=== PATIENT | female | born 1990 | race African-American/Black ===

== ENCOUNTER 2019-07-14 09:45 | Emergency (ER) | payer OTHER ==
--- NOTE | 2019-07-14 10:07 | ED Physician Documentation ---
PD HPI FEMALE - Stated complaint Stated Complaint: FEMALE /DIARRHEA - Chief complaint Chief Complaint: Abd Pain - History obtained from History obtained from: Patient - History of Present Illness Timing - onset: How many weeks ago (1) Timing - duration: Weeks (1) Timing - details: Gradual onset, Still present Associated symptoms: Dysuria, Urinary frequency. No: Fever, Vaginal discharge, Genital sore/lesion Contributing factors: Sexually active. No: Exposed to STD Similar symptoms before: Has not had sx before Recently seen: Not recently seen Review of Systems Constitutional: denies: Fever, Chills, Myalgias Nose: denies: Rhinorrhea / runny nose, Congestion Throat: denies: Sore throat Respiratory: denies: Cough GI: reports: Diarrhea (today, several times started overnight.). denies: Nausea, Vomiting : reports: Dysuria, Frequency. 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 : None Musculoskeletal: None - Past Surgical History Past Surgical History: No - Present Medications Home Medications: Ambulatory Orders Medication Instructions Recorded Confirmed Fluconazole [Diflucan] 150 mg PO ONCE #2 tablet 07/14/19 Metronidazole [Flagyl] 500 mg PO BID #14 tablet 07/14/19 - Allergies Allergies/Adverse Reactions: Allergies Allergy/AdvReac Type Severity Reaction Status Date / Time No Known Drug Allergies Allergy Verified 07/14/19 09:49 - Social History Does the pt smoke?: No Smoking Status: Former smoker Does the pt drink ETOH?: Yes Does the pt have substance abuse?: No - Immunizations Immunizations are current?: Yes PD ED PE NORMAL - Vitals Vital signs reviewed: Yes - General General: Alert and oriented X 3, No acute distress, Well developed/nourished - Cardiac Cardiac: RRR, No murmur - Respiratory Respiratory: Clear bilaterally - Abdomen Abdomen: Normal bowel sounds, Soft, Non tender, Non distended, No organomegaly - Female Female : 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 Vaginal vault has mild whitish discharge near introitus. Otherwise the vault has mucous/clear with some white discharge with some malodor. No endocervical discharge per se. ) - Rectal Rectal: Deferred - Back Back: No CVA TTP - Derm Derm: Normal color, No rash - Extremities Extremities: No edema, No calf tenderness / cord - Neuro Neuro: Alert and oriented X 3, No motor deficit, Normal speech Results - Vitals Vitals: Vital Signs - 24 hr 07/14/19 07/14/19 09:50 12:57 Temperature 36.6 C Heart Rate 74 67 Respiratory 18 16 Rate Blood Pressure 115/76 125/89 H O2 Saturation 100 100 Oxygen O2 Source Room air - Labs Labs: Laboratory Tests 07/14/19 07/14/19 07/14/19 10:00 10:00 12:19 Urine Color YELLOW Urine Clarity HAZY Urine pH 6.5 Ur Specific [place] <=1.005 <=1.005 Urine Protein NEGATIVE Urine Glucose (UA) NEGATIVE Urine Ketones NEGATIVE Urine Occult Blood SMALL H Urine Nitrite NEGATIVE Urine Bilirubin NEGATIVE Urine Urobilinogen 0.2 (NORMAL) Ur Leukocyte Esterase SMALL H Urine RBC 0-5 Urine WBC 6-10 H Ur Squamous Epith Cells MANY Squamous H Urine Bacteria Few Ur Microscopic Review INDICATED Urine Culture Comments NOT INDICATED Urine HCG, Qual NEGATIVE C. glabrata (PCR) NEGATIVE C. krusei (PCR) NEGATIVE Agatha species DNA NEGATIVE T. vaginalis (PCR) NEGATIVE Bact Vaginosis (PCR) NEGATIVE PD MEDICAL DECISION MAKING - ED course Complexity details: considered differential (UA not convincing for UTI. Some yeast mentioned. Did pelvic and exam is more c/w vaginitis. ), d/w patient Departure - Departure Disposition: 01 Home, Self Care Clinical Impression: Dysuria Vaginitis Qualifiers: Chronicity: acute Qualified Code(s): N76.0 - Acute vaginitis Condition: Stable Record reviewed to determine appropriate education?: Yes Instructions: ED Vaginal Infec Fungal Agatha Follow-Up: [facility] [Provider Group] Prescriptions: Fluconazole [Diflucan] 150 mg PO ONCE #2 tablet Metronidazole [Flagyl] 500 mg PO BID #14 tablet Comments: Your exam has an appearance of a yeast vaginitis. They may be an element of a bacterial vaginitis as well. We are doing some vaginal "culture" tests that will result later today or tomorrow to look for other type infections. We will treat with the prescribed medications antifungal and antibiotic. We will call you if other types of infections are present. You were given an antifungal tablet here in the ER. I prescribed 2 more for you to take 3 days from now and another 3 days after that. Discharge Date/Time: 07/14/19 12:58
[2019-07-14 10:09] LABS: BILIRUBIN,URINE NEGATIVE (NEGATIVE); GLUCOSE, URINE (UA) NEGATIVE (NEGATIVE); KETONES,URINE (UA) NEGATIVE (NEGATIVE); LEUKOCYTE ESTERASE, URINE SMALL (NEGATIVE); NITRITE,URINE NEGATIVE (NEGATIVE); OCCULT BLOOD,URINE SMALL (NEGATIVE); PH,URINE 6.5 PH (5.0-7.5); PROTEIN,URINE NEGATIVE (NEGATIVE); UROBILINOGEN,URINE 0.2 (NORMAL) E.U./dL (NORMAL)
[2019-07-14 10:10] LABS: CLARITY,URINE HAZY (CLEAR)
[2019-07-14 10:17] LABS: BACTERIA,URINE Few /HPF (None Seen); RBC,URINE 0-5 /HPF (0-5); SQUAMOUS EPITHELIAL CELL,UR MANY Squamous (<= Few)
[2019-07-14 10:53] LABS: HCG UR QUAL NEGATIVE
[2019-07-14] MEDS ORDERED: FLUCONAZOLE 100 MG TABLET PO STA (12:24)
[2019-07-14] MEDS ORDERED: DIPHENOX/ATROPINE 2.5/0.025 MG TABLET PO STA (12:52)
[2019-07-14 12:58] VITALS: BP 125/89
[2019-07-14 14:17] LABS: CANDIDA GROUP DNA NEGATIVE (NEGATIVE); CANDIDA KRUSEI DNA NEGATIVE (NEGATIVE); TRICHOMONAS VAGINALIS DNA NEGATIVE (NEGATIVE)
[2019-07-16 18:24] LABS: TRICHOMONAS VAGINALIS DNA NEGATIVE (NEGATIVE)
== END 2019-07-14 12:58 | disposition home or self-care (01) ==
LOC: ED 09:45
DX: N76.0 Acute vaginitis (principal); R30.0 Dysuria; Z87.891 Personal history of nicotine dependence
CPT/HCPCS: 81001; 81025; 87481; 87491; 87591; 87661; 87801; 99283; 99284; A9270; 81003; 87086

== ENCOUNTER 2020-04-20 10:19 | Emergency (ER) | payer OTHER ==
[2020-04-20 10:54] LABS: BILIRUBIN,URINE NEGATIVE (NEGATIVE); GLUCOSE, URINE (UA) NEGATIVE (NEGATIVE); KETONES,URINE (UA) NEGATIVE (NEGATIVE); LEUKOCYTE ESTERASE, URINE SMALL (NEGATIVE); NITRITE,URINE NEGATIVE (NEGATIVE); OCCULT BLOOD,URINE NEGATIVE (NEGATIVE); PROTEIN,URINE NEGATIVE (NEGATIVE); UROBILINOGEN,URINE 0.2 (NORMAL) E.U./dL (NORMAL)
[2020-04-20 10:58] LABS: CLARITY,URINE HAZY (CLEAR); HCG UR QUAL POSITIVE
[2020-04-20 11:17] LABS: BASOPHILS # (AUTO) 0.1 10^3/uL (0.0-0.1); BASOPHILS % (AUTO) 0.9 %; EOSINOPHILS % (AUTO) 0.7 %; HGB - HEMOGLOBIN 12.9 g/dL (12.0-16.0); LYMPHOCYTES % (AUTO) 36.3 %; MEAN CORPUSCULAR HEMOGLOBIN 27.5 pg (27.0-31.0); MEAN CORPUSCULAR HGB CONC 33.4 g/dL (32.0-36.0); MEAN CORPUSCULAR VOLUME 82.3 fL (81.0-99.0); MEAN PLATELET VOLUME 10.1 fL (7.9-10.8); MONOCYTES # (AUTO) 0.5 10^3/uL (0.0-1.0); MONOCYTES % (AUTO) 9.8 %; NEUTROPHILS # (AUTO) 2.8 10^3/uL (1.5-6.6); NEUTROPHILS % (AUTO) 52.1 %; PLT - PLATELET COUNT 340 10^3/uL (130-450); RED BLOOD COUNT 4.69 10^6/uL (4.20-5.40); RED CELL DISTRIBUTION WIDTH 13.5 % (12.0-15.0); WHITE BLOOD COUNT 5.4 x10^3/uL (4.8-10.8)
[2020-04-20 11:25] LABS: BACTERIA,URINE Moderate /HPF (None Seen); RBC,URINE 0-5 /HPF (0-5); SQUAMOUS EPITHELIAL CELL,UR MANY Squamous (<= Few)
[2020-04-20 11:28] LABS: BILIRUBIN,TOTAL 0.6 mg/dL (0.2-1.0); CALCIUM 8.9 mg/dL (8.5-10.3); CREATININE 0.9 mg/dL (0.4-1.0); TOTAL PROTEIN 7.9 g/dL (6.7-8.2)
--- NOTE | 2020-04-20 12:43 | ED Physician Documentation ---
PD HPI NVD - Stated complaint Stated Complaint: N/V, DIFFICULTY BREATHING - Chief complaint Chief Complaint: Abd Pain - History obtained from History obtained from: Patient - History of Present Illness Timing - onset: How many weeks ago (1) Timing - duration: Weeks (1) Timing - details: Gradual onset, Waxing and waning Associated symptoms: Abdominal pain (crampy lower), Loss of appetite. No: Fever Contributing factors: No: Sick contact, Bad food, Travel, Diabetes Improved by: No: Eating Worsened by: Eating Similar symptoms before: Has not had sx before Recently seen: Not recently seen Review of Systems Constitutional: denies: Fever, Chills, Myalgias Nose: denies: Rhinorrhea / runny nose, Congestion Throat: denies: Sore throat Respiratory: denies: Cough GI: reports: Nausea, Vomiting (few times). denies: Constipation, Diarrhea : reports: Missed period (she is 1 week late). 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 Musculoskeletal: None - Past Surgical History Past Surgical History: No - Present Medications Home Medications: Ambulatory Orders Medication Instructions Recorded Confirmed Bcp 02/27/20 Cephalexin [Keflex] 500 mg PO BID 5 Days #10 capsule 02/27/20 Ondansetron Odt [Zofran] 4 mg TL Q6H PRN #10 tablet 04/20/20 Pyridoxine HCl (Vitamin B6) 25 mg PO BID #30 tablet 04/20/20 [Vitamin B-6] dexAMETHasone [Decadron] 4 mg PO DAILY #5 tablet 04/20/20 - Allergies Allergies/Adverse Reactions: Allergies Allergy/AdvReac Type Severity Reaction Status Date / Time No Known Drug Allergies Allergy Verified 04/20/20 10:24 - Social History Does the pt smoke?: No Smoking Status: Former smoker Does the pt drink ETOH?: Yes Does the pt have substance abuse?: No - Immunizations Immunizations are current?: Yes - POLST Patient has POLST: No PD ED PE NORMAL - Vitals Vital signs reviewed: Yes - General General: Alert and oriented X 3, No acute distress, Well developed/nourished - HEENT HEENT: Pharynx benign - Neck Neck: Supple, no meningeal sign, No adenopathy - Cardiac Cardiac: RRR, No murmur - Respiratory Respiratory: Clear bilaterally - Abdomen Abdomen: Normal bowel sounds, Soft, Non distended, No organomegaly, Other (mild tender RLQ without guarding nor percusssion tender. No CVA tenderness. ) - Female Female : Deferred - Back Back: No CVA TTP - Derm Derm: Normal color, Warm and dry - Neuro Neuro: Alert and oriented X 3, No motor deficit, Normal speech Results - Vitals Vitals: Vital Signs - 24 hr 04/20/20 04/20/20 04/20/20 10:24 13:29 14:28 Temperature 36.5 C 37.3 C 37 C Heart Rate 91 83 85 Respiratory 18 14 16 Rate Blood Pressure 118/77 112/71 104/71 O2 Saturation 100 100 100 Oxygen O2 Source Room air - Labs Labs: Laboratory Tests 04/20/20 04/20/20 04/20/20 10:30 10:58 10:58 WBC 5.4 RBC 4.69 Hgb 12.9 Hct 38.6 MCV 82.3 MCH 27.5 MCHC 33.4 RDW 13.5 Plt Count 340 MPV 10.1 Neut # (Auto) 2.8 Lymph # (Auto) 2.0 [place] # (Auto) 0.5 Eos # (Auto) 0.0 Baso # (Auto) 0.1 Absolute Nucleated RBC 0.00 Nucleated RBC % 0.0 Sodium 134 L Potassium 3.9 Chloride 101 Carbon Dioxide 26 Anion Gap 7.0 BUN 15 Creatinine 0.9 Estimated GFR (MDRD) 90 Glucose 88 Calcium 8.9 Total Bilirubin 0.6 AST 24 ALT 21 Alkaline Phosphatase 42 Total Protein 7.9 Albumin 4.0 Globulin 3.9 Albumin/Globulin Ratio 1.0 Lipase 32 HCG, Quant Urine Color YELLOW Urine Clarity HAZY Urine pH 7.0 Ur Specific [place] 1.020 Urine Protein NEGATIVE Urine Glucose (UA) NEGATIVE Urine Ketones NEGATIVE Urine Occult Blood NEGATIVE Urine Nitrite NEGATIVE Urine Bilirubin NEGATIVE Urine Urobilinogen 0.2 (NORMAL) Ur Leukocyte Esterase SMALL H Urine RBC 0-5 Urine WBC 11-25 H Ur Squamous Epith Cells MANY Squamous H Urine Bacteria Moderate H Ur Microscopic Review INDICATED Urine Culture Comments NOT INDICATED Urine HCG, Qual POSITIVE 04/20/20 10:58 WBC RBC Hgb Hct MCV MCH MCHC RDW Plt Count MPV Neut # (Auto) Lymph # (Auto) [place] # (Auto) Eos # (Auto) Baso # (Auto) Absolute Nucleated RBC Nucleated RBC % Sodium Potassium Chloride Carbon Dioxide Anion Gap BUN Creatinine Estimated GFR (MDRD) Glucose Calcium Total Bilirubin AST ALT Alkaline Phosphatase Total Protein Albumin Globulin Albumin/Globulin Ratio Lipase HCG, Quant 452.20 Urine Color Urine Clarity Urine pH Ur Specific [place] Urine Protein Urine Glucose (UA) Urine Ketones Urine Occult Blood Urine Nitrite Urine Bilirubin Urine Urobilinogen Ur Leukocyte Esterase Urine RBC Urine WBC Ur Squamous Epith Cells Urine Bacteria Ur Microscopic Review Urine Culture Comments Urine HCG, Qual PD MEDICAL DECISION MAKING - ED course Complexity details: re-evaluated patient (Pt had waited for U/S and then needs to be leaving. Encouraged to see PCP for further testing and discussed concern/consequences of ectopic. ), considered differential (presume N/V related to early . Will get U/S since some mild RLQ tender to ensure not ectopic.), d/w patient Departure - Departure Disposition: 01 Home, Self Care Clinical Impression: Early stage of Nausea & vomiting Qualifiers: Vomiting type: unspecified Vomiting Intractability: non-intractable Qualified Code(s): R11.2 - Nausea with vomiting, unspecified Condition: Stable Record reviewed to determine appropriate education?: Yes Instructions: ED Preg Morning Sickness Follow-Up: [facility] [Provider Group] Prescriptions: dexAMETHasone [Decadron] 4 mg PO DAILY #5 tablet Pyridoxine HCl (Vitamin B6) [Vitamin B-6] 25 mg PO BID #30 tablet Ondansetron Odt [Zofran] 4 mg TL Q6H PRN #10 tablet PRN Reason: Nausea / Vomiting Comments: Stay well-hydrated and use Tylenol if needed for pains every 4-6 hours. For your nausea, presumed from early , we can use a combination of vitamin B6 twice daily and Decadron steroid daily for the next 5 days. To that add ondansetron if needed for nausea. Follow-up with your primary care for further evaluation. Return if you have increased pain or other problems. Concern would be for any malposition of the fetus such as a tubal if you are experiencing increased pain. Otherwise following up with your primary care for initial evaluation. You can stop your control pill. Forms: Activity restrictions Discharge Date/Time: 04/20/20 14:29
[2020-04-20] MEDS ORDERED: FAMOTIDINE 20 MG TABLET PO STA (13:06)
[2020-04-20] MEDS ORDERED: ONDANSETRON ODT 4 MG TABLET TL STA (13:06)
[2020-04-20 14:29] VITALS: BP 104/71
== END 2020-04-20 14:29 | disposition home or self-care (01) ==
LOC: ED 10:19
DX: O21.9 Vomiting of pregnancy, unspecified (principal); Z3A.00 Weeks of gestation of pregnancy not specified; Z87.891 Personal history of nicotine dependence
CPT/HCPCS: 36415; 80053; 81001; 81025; 83690; 84702; 85025; 99284; A9270; Q0162; 81003; 87086

== ENCOUNTER 2020-05-05 16:41 | Emergency (ER) | payer OTHER ==
--- NOTE | 2020-05-05 17:26 | ED Physician Documentation ---
PD HPI FEMALE - Stated complaint Stated Complaint: ABD PX - Chief complaint Chief Complaint: Abd Pain - History obtained from History obtained from: Patient - History of Present Illness Timing - onset: How many weeks ago (3) Timing - duration: Weeks (3) Timing - details: Gradual onset, Still present, Constant Associated symptoms: Abdominal pain, Back pain. 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 She indicates that for the past 3 weeks she has had pain in her right side and the right flank and the modifying factors for this pain is if she is laying on her right side the pain is somewhat better if she lays on the left side the pain on the right side is worse it is sharp and stabbing in nature. 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 : None Musculoskeletal: None - Past Surgical History Past Surgical History: No - Present Medications Home Medications: Ambulatory Orders Medication Instructions Recorded Confirmed Bcp 02/27/20 Cephalexin [Keflex] 500 mg PO BID 5 Days #10 capsule 02/27/20 Ondansetron Odt [Zofran] 4 mg TL Q6H PRN #10 tablet 04/20/20 Pyridoxine HCl (Vitamin B6) 25 mg PO BID #30 tablet 04/20/20 [Vitamin B-6] dexAMETHasone [Decadron] 4 mg PO DAILY #5 tablet 04/20/20 - Allergies Allergies/Adverse Reactions: Allergies Allergy/AdvReac Type Severity Reaction Status Date / Time No Known Drug Allergies Allergy Verified 05/05/20 16:49 - Social History Does the pt smoke?: No Smoking Status: Former smoker Does the pt drink ETOH?: Yes Does the pt have substance abuse?: No - Immunizations Immunizations are current?: Yes - POLST Patient has POLST: No Results - Vitals Vitals: Vital Signs - 24 hr 10/07/20 10/07/20 16:44 17:14 Temperature 36.6 C 36.9 C Heart Rate 85 84 Respiratory 16 16 Rate Blood Pressure 112/75 121/83 H O2 Saturation 100 100 Oxygen O2 Source Room air - Labs Labs: Laboratory Tests 05/05/20 05/05/20 05/05/20 17:10 17:30 17:30 WBC 4.3 L RBC 4.28 Hgb 12.0 Hct 36.1 L MCV 84.3 MCH 28.0 MCHC 33.2 RDW 13.4 Plt Count 297 MPV 9.7 Neut # (Auto) 2.3 Lymph # (Auto) 1.5 [place] # (Auto) 0.5 Eos # (Auto) 0.1 Baso # (Auto) 0.1 Absolute Nucleated RBC 0.00 Nucleated RBC % 0.0 Sodium 134 L Potassium 3.7 Chloride 101 Carbon Dioxide 25 Anion Gap 8.0 BUN 8 Creatinine 0.7 Estimated GFR (MDRD) 120 Glucose 74 Calcium 8.8 Total Bilirubin 0.4 AST 22 ALT 15 Alkaline Phosphatase 35 L Total Protein 7.1 Albumin 3.6 Globulin 3.5 Albumin/Globulin Ratio 1.0 Lipase 27 HCG, Quant Urine Color YELLOW Urine Clarity CLEAR Urine pH 7.5 Ur Specific [place] 1.020 Urine Protein NEGATIVE Urine Glucose (UA) NEGATIVE Urine Ketones NEGATIVE Urine Occult Blood NEGATIVE Urine Nitrite NEGATIVE Urine Bilirubin NEGATIVE Urine Urobilinogen 0.2 (NORMAL) Ur Leukocyte Esterase NEGATIVE Ur Microscopic Review NOT INDICATED Urine Culture Comments NOT INDICATED 05/05/20 17:30 WBC RBC Hgb Hct MCV MCH MCHC RDW Plt Count MPV Neut # (Auto) Lymph # (Auto) [place] # (Auto) Eos # (Auto) Baso # (Auto) Absolute Nucleated RBC Nucleated RBC % Sodium Potassium Chloride Carbon Dioxide Anion Gap BUN Creatinine Estimated GFR (MDRD) Glucose Calcium Total Bilirubin AST ALT Alkaline Phosphatase Total Protein Albumin Globulin Albumin/Globulin Ratio Lipase HCG, Quant 93646.00 Urine Color Urine Clarity Urine pH Ur Specific [place] Urine Protein Urine Glucose (UA) Urine Ketones Urine Occult Blood Urine Nitrite Urine Bilirubin Urine Urobilinogen Ur Leukocyte Esterase Ur Microscopic Review Urine Culture Comments PD MEDICAL DECISION MAKING - ED course Complexity details: reviewed results, re-evaluated patient, considered differential ED course: 29-year-old female 7 weeks with right-sided abdominal pain has a quant of 82,000 and a gestational sac measuring 6 weeks 5 days with a fetus in a heart rate. There is discordance between the quant and the age of the fetus and the transvaginal ultrasound is pending and at shift change the patient's care is turned over to Dr. Donnell Camarena.
[2020-05-05 17:36] LABS: BASOPHILS # (AUTO) 0.1 10^3/uL (0.0-0.1); BASOPHILS % (AUTO) 1.2 %; EOSINOPHILS # (AUTO) 0.1 10^3/uL (0.0-0.7); EOSINOPHILS % (AUTO) 1.2 %; LYMPHOCYTES # (AUTO) 1.5 10^3/uL (1.5-3.5); LYMPHOCYTES % (AUTO) 34.4 %; MEAN CORPUSCULAR HGB CONC 33.2 g/dL (32.0-36.0); MEAN CORPUSCULAR VOLUME 84.3 fL (81.0-99.0); MEAN PLATELET VOLUME 9.7 fL (7.9-10.8); MONOCYTES # (AUTO) 0.5 10^3/uL (0.0-1.0); MONOCYTES % (AUTO) 10.4 %; NEUTROPHILS # (AUTO) 2.3 10^3/uL (1.5-6.6); NEUTROPHILS % (AUTO) 52.6 %; PLT - PLATELET COUNT 297 10^3/uL (130-450); RED BLOOD COUNT 4.28 10^6/uL (4.20-5.40); RED CELL DISTRIBUTION WIDTH 13.4 % (12.0-15.0); WHITE BLOOD COUNT 4.3 x10^3/uL (4.8-10.8)
[2020-05-05 17:51] LABS: ALBUMIN 3.6 g/dL (3.2-5.5); BILIRUBIN,TOTAL 0.4 mg/dL (0.2-1.0); CALCIUM 8.8 mg/dL (8.5-10.3); CREATININE 0.7 mg/dL (0.4-1.0); TOTAL PROTEIN 7.1 g/dL (6.7-8.2)
[2020-05-05 18:10] LABS: BILIRUBIN,URINE NEGATIVE (NEGATIVE); GLUCOSE, URINE (UA) NEGATIVE (NEGATIVE); KETONES,URINE (UA) NEGATIVE (NEGATIVE); LEUKOCYTE ESTERASE, URINE NEGATIVE (NEGATIVE); NITRITE,URINE NEGATIVE (NEGATIVE); OCCULT BLOOD,URINE NEGATIVE (NEGATIVE); PH,URINE 7.5 PH (5.0-7.5); PROTEIN,URINE NEGATIVE (NEGATIVE); UROBILINOGEN,URINE 0.2 (NORMAL) E.U./dL (NORMAL)
[2020-05-05 18:15] LABS: CLARITY,URINE CLEAR (CLEAR)
--- NOTE | 2020-05-05 20:18 | Ultrasound Report ---
PROCEDURE: OB First Trimester INDICATIONS: RT SIDED PAIN - 7 WK OUTSIDE/PRIOR DATING DATA: Last menstrual period (LMP): 03/19/2020. LMP-based estimated date of delivery (MIKY): 12/24/2020. First dating scan (date and location): 05/05/2020. Estimated date of delivery (MIKY) from first dating scan: 12/27/2020. TECHNIQUE: Real-time scanning was performed of the fetus and maternal pelvic organs, with image documentation. [facility] transvaginal and transabdominal scanning was performed. COMPARISON: No comparison study available FINDINGS: Embryo: [place]-rump length is 5 mm corresponding with a gestational age of 6 weeks 2 days. The mean g estational sac diameter is 2.1 cm corresponding to a gestational age of 7 weeks 0 days. heart r ate is detected at 126 bpm. There is a subchorionic hemorrhage measuring 5 cm seen on the transvagina l views adjacent to the gestational sac. There are 2 right ovarian cysts measuring up to 2.3 cm, eith er which could represent a corpus luteum cyst on the basis of appearance IMPRESSION: Single live intrauterine gestation with average ultrasound age of 6 weeks 2 days. Subchorionic hemorrhage measuring 5 cm. Close clinical and perhaps imaging follow-up recommended. Reviewed by: Jong Escalera MD on 05/05/2020 8:17 PM PDT Approved by: Jong Escalera MD on 05/05/2020 8:17 PM PDT Station ID: [id number]
--- NOTE | 2020-05-05 20:32 | ED Physician Documentation ---
ED Addendum - Addendum Addendum: patient signed out to me at shift change by dr woody eagle. patient updated on her OB us results that shows a viable intrauterine at 6 weeks and 2 days. The patient was updated on this and educated on follow-up with her OB provider. She then responded "can i get a note so i dont have to go to work?" 05/05/20 20:30 Departure - Departure Disposition: 01 Home, Self Care Clinical Impression: Qualifiers: Weeks of gestation: less than 8 weeks Qualified Code(s): Z3A.01 - Less than 8 weeks gestation of Subchorionic hemorrhage in first trimester Qualifiers: Fetus number: single or unspecified fetus Qualified Code(s): O41.8X10 - Other specified disorders of amniotic fluid and membranes, first trimester, not applicable or unspecified; O46.8X1 - Other antepartum hemorrhage, first trimester Condition: Stable Instructions: ED Care, Preg Multiples Concerns Follow-Up: your, doctor [Other] Comments: Follow-up with your OB doctor tomorrow. Take a daily vitamin.
[2020-05-05 20:43] VITALS: BP 108/68
--- NOTE | 2020-05-10 06:16 | Ultrasound Report ---
PROCEDURE: OB Transvaginal INDICATIONS: RT SIDED PAIN - 7 WK TECHNIQUE: Transabdominal and transvaginal scanning was performed. The findings of both the transabdo cuca and transvaginal scans are reported separately in the report for the transabdominal scan. COMPARISON: None. FINDINGS/IMPRESSION: Please see separately dictated report for discussion of findings. Reviewed by: Jong Escalera MD on 05/05/2020 8:17 PM PDT Approved by: Jong Escalera MD on 05/05/2020 8:17 PM PDT Station ID: [id number]
== END 2020-05-05 20:48 | disposition home or self-care (01) ==
LOC: ED 16:41
DX: O46.8X1 Other antepartum hemorrhage, first trimester (principal); Z3A.01 Less than 8 weeks gestation of pregnancy; Z87.891 Personal history of nicotine dependence
CPT/HCPCS: 36415; 76801; 76817; 80053; 81001; 81003; 83690; 84702; 85025; 87086; 99281; 99284

== ENCOUNTER 2020-05-14 10:22 | Emergency (ER) | payer OTHER ==
[2020-05-14 11:24] LABS: BILIRUBIN,URINE NEGATIVE (NEGATIVE); GLUCOSE, URINE (UA) NEGATIVE (NEGATIVE); KETONES,URINE (UA) NEGATIVE (NEGATIVE); LEUKOCYTE ESTERASE, URINE TRACE (NEGATIVE); NITRITE,URINE NEGATIVE (NEGATIVE); OCCULT BLOOD,URINE NEGATIVE (NEGATIVE); PROTEIN,URINE NEGATIVE (NEGATIVE); UROBILINOGEN,URINE 0.2 (NORMAL) E.U./dL (NORMAL)
[2020-05-14 11:29] LABS: EOSINOPHILS % (AUTO) 0.8 %; HGB - HEMOGLOBIN 12.1 g/dL (12.0-16.0); LYMPHOCYTES # (AUTO) 1.4 10^3/uL (1.5-3.5); LYMPHOCYTES % (AUTO) 34.5 %; MEAN CORPUSCULAR HEMOGLOBIN 28.3 pg (27.0-31.0); MEAN CORPUSCULAR HGB CONC 33.9 g/dL (32.0-36.0); MEAN CORPUSCULAR VOLUME 83.4 fL (81.0-99.0); MEAN PLATELET VOLUME 9.7 fL (7.9-10.8); MONOCYTES # (AUTO) 0.4 10^3/uL (0.0-1.0); NEUTROPHILS # (AUTO) 2.1 10^3/uL (1.5-6.6); NEUTROPHILS % (AUTO) 53.4 %; PLT - PLATELET COUNT 275 10^3/uL (130-450); RED BLOOD COUNT 4.28 10^6/uL (4.20-5.40); RED CELL DISTRIBUTION WIDTH 13.2 % (12.0-15.0); WHITE BLOOD COUNT 3.9 x10^3/uL (4.8-10.8)
[2020-05-14 11:30] LABS: CLARITY,URINE HAZY (CLEAR)
[2020-05-14 11:40] LABS: BACTERIA,URINE Rare /HPF (None Seen); RBC,URINE 0-5 /HPF (0-5); SQUAMOUS EPITHELIAL CELL,UR MOD Squamous (<= Few)
[2020-05-14 11:52] LABS: CALCIUM 9.3 mg/dL (8.5-10.3); CREATININE 0.6 mg/dL (0.4-1.0)
--- NOTE | 2020-05-14 12:11 | ED Physician Documentation ---
PD HPI FEMALE - Stated complaint Stated Complaint: SPOTTING - Chief complaint Chief Complaint: Abd Pain - History obtained from History obtained from: Patient - Additional information Additional information: 8 weeks , has a known subchorionic hemorrhage. Had a heavy bleeding last night which has now gone away. No pain. 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 : None Musculoskeletal: None - Past Surgical History Past Surgical History: No - Present Medications Home Medications: Ambulatory Orders Medication Instructions Recorded Confirmed Bcp 02/27/20 Cephalexin [Keflex] 500 mg PO BID 5 Days #10 capsule 02/27/20 Ondansetron Odt [Zofran] 4 mg TL Q6H PRN #10 tablet 04/20/20 Pyridoxine HCl (Vitamin B6) 25 mg PO BID #30 tablet 04/20/20 [Vitamin B-6] dexAMETHasone [Decadron] 4 mg PO DAILY #5 tablet 04/20/20 - Allergies Allergies/Adverse Reactions: Allergies Allergy/AdvReac Type Severity Reaction Status Date / Time No Known Drug Allergies Allergy Verified 05/14/20 10:30 - Social History Does the pt smoke?: No Smoking Status: Never smoker Does the pt drink ETOH?: Yes Does the pt have substance abuse?: No - Immunizations Immunizations are current?: Yes - POLST Patient has POLST: No PD ED PE NORMAL - Vitals Vital signs reviewed: Yes - General General: Alert and oriented X 3, No acute distress - Abdomen Abdomen: Soft, Non tender - Neuro Neuro: Alert and oriented X 3, Normal speech - Psych Psych: Normal mood, Normal affect Results - Vitals Vitals: Vital Signs - 24 hr 05/14/20 05/14/20 10:26 12:30 Temperature 36.2 C L Heart Rate 78 67 Respiratory 17 12 Rate Blood Pressure 122/63 105/63 O2 Saturation 100 99 Oxygen O2 Source Room air - Labs Labs: Laboratory Tests 05/14/20 05/14/20 05/14/20 10:40 11:20 11:20 WBC 3.9 L RBC 4.28 Hgb 12.1 Hct 35.7 L MCV 83.4 MCH 28.3 MCHC 33.9 RDW 13.2 Plt Count 275 MPV 9.7 Neut # (Auto) 2.1 Lymph # (Auto) 1.4 L [place] # (Auto) 0.4 Eos # (Auto) 0.0 Baso # (Auto) 0.0 Absolute Nucleated RBC 0.00 Nucleated RBC % 0.0 Sodium Potassium Chloride Carbon Dioxide Anion Gap BUN Creatinine Estimated GFR (MDRD) Glucose Calcium HCG, Quant Urine Color YELLOW Urine Clarity HAZY Urine pH 7.0 Ur Specific [place] 1.020 Urine Protein NEGATIVE Urine Glucose (UA) NEGATIVE Urine Ketones NEGATIVE Urine Occult Blood NEGATIVE Urine Nitrite NEGATIVE Urine Bilirubin NEGATIVE Urine Urobilinogen 0.2 (NORMAL) Ur Leukocyte Esterase TRACE H Urine RBC 0-5 Urine WBC 6-10 H Ur Squamous Epith Cells MOD Squamous H Urine Bacteria Rare Ur Microscopic Review INDICATED Urine Culture Comments NOT INDICATED Blood Type O POSITIVE 05/14/20 05/14/20 11:20 11:30 WBC RBC Hgb Hct MCV MCH MCHC RDW Plt Count MPV Neut # (Auto) Lymph # (Auto) [place] # (Auto) Eos # (Auto) Baso # (Auto) Absolute Nucleated RBC Nucleated RBC % Sodium 135 Potassium 3.9 Chloride 99 L Carbon Dioxide 25 Anion Gap 11.0 BUN 7 Creatinine 0.6 Estimated GFR (MDRD) 143 Glucose 87 Calcium 9.3 HCG, Quant 534376.00 Urine Color Urine Clarity Urine pH Ur Specific [place] Urine Protein Urine Glucose (UA) Urine Ketones Urine Occult Blood Urine Nitrite Urine Bilirubin Urine Urobilinogen Ur Leukocyte Esterase Urine RBC Urine WBC Ur Squamous Epith Cells Urine Bacteria Ur Microscopic Review Urine Culture Comments Blood Type - Rads (name of study) OB sono Radiology: Prelim report reviewed (7w live IUP, improved subchorionic hemorrhage) PD MEDICAL DECISION MAKING - ED course ED course: 29-year-old woman in early had vaginal bleeding which is now better. Her blood work, blood type, and ultrasound are reassuring that she does not need any specific intervention. Departure - Departure Disposition: 01 Home, Self Care Clinical Impression: Early stage of Subchorionic hemorrhage in first trimester Qualifiers: Fetus number: single or unspecified fetus Qualified Code(s): O41.8X10 - Other specified disorders of amniotic fluid and membranes, first trimester, not applicable or unspecified Condition: Good Record reviewed to determine appropriate education?: Yes Instructions: ED Preg Established Normal Sxs Comments: As discussed the baby is looking okay, and the subchorionic hemorrhage seems to be improving. Return if worse. Forms: Activity restrictions Discharge Date/Time: 05/14/20 14:07
[2020-05-14 12:35] VITALS: BP 105/63
--- NOTE | 2020-05-14 14:30 | Ultrasound Report ---
PROCEDURE: OB First Trimester INDICATIONS: early ; bleeding/spotting today OUTSIDE/PRIOR DATING DATA: Last menstrual period (LMP): 03/19/2020. LMP-based estimated date of delivery (MIKY): 12/24/2020. First dating scan (date and location): 05/05/2020. Estimated date of delivery (MIKY) from first dating scan: 12/27/2020. TECHNIQUE: Real-time scanning was performed of the fetus and maternal pelvic organs, with image documentation. COMPARISON: 05/05/2020 FINDINGS: Single living intrauterine fetus is present with a crown-rump length measuring 1.4 cm, 7 w eeks 5 days. heart rate measures 173 bpm. Yolk sac noted. Subchorionic hemorrhage is noted grace uring 1.6 x 0.8 x 0.7 cm, decreased in size since the prior study. Measurement variability in dating: +/- 4 weeks by LMP, +/- 7 days by mean sac diameter (use before 6 weeks gestation if crown-rump length not able to be measured), +/- 5 days by crown-rump length (6-12 weeks gestation). Maternal organs: Ovaries unremarkable except for a presumed right ovarian corpus luteum. Limited im ages through the kidneys demonstrate no hydronephrosis. IMPRESSION: Single living intrauterine fetus. Perigestational hemorrhage which is decreased in size since the prior study. Reviewed by: Noe Helm MD on 05/14/2020 2:29 PM PDT Approved by: Noe Helm MD on 05/14/2020 2:29 PM PDT Station ID: [id number]
== END 2020-05-14 14:07 | disposition home or self-care (01) ==
LOC: ED 10:22
DX: O20.9 Hemorrhage in early pregnancy, unspecified (principal); O41.8X10 Other specified disorders of amniotic fluid and membranes, first trimester, not applicable or unspecified; Z3A.01 Less than 8 weeks gestation of pregnancy
CPT/HCPCS: 36415; 76801; 80048; 81001; 81003; 84702; 85025; 86900; 86901; 87086; 99282; 99284

== ENCOUNTER 2020-06-15 20:22 | Emergency (ER) | payer OTHER ==
[2020-06-15] MEDS ORDERED: SODIUM CHLORIDE 0.9% 1,000 ML IV STA (20:49)
--- NOTE | 2020-06-15 20:52 | ED Physician Documentation ---
PD HPI ABD PAIN - Stated complaint Stated Complaint: LT RIB PX - Chief complaint Chief Complaint: Abd Pain - History obtained from History obtained from: Patient - History of Present Illness Timing - onset: Enter time (0), Today Timing - duration: Hours Timing - details: Abrupt onset, Still present Quality: Sharp, Pain Location: LLQ Improved by: Laying still Worsened by: Moving, Breathing, Position, Palpation Associated symptoms: Nausea. No: Vomiting Similar symptoms before: Has not had sx before Recently seen: Emergency Dept - Additional information Additional information: 29-year-old female who is 12wks returned home from work today and was sitting when she had sudden onset of pain in the left side of the abdomen. She relates that the pain is worse if she is laying on that side or walks or pushes on the abdomen under the ribs on the left side. She has nausea but denies fever or vomiting. She has had some issues with eating food with morning sickness and she is not eating much. Review of Systems Constitutional: denies: Fever Eyes: denies: Decreased vision Ears: denies: Ear pain Nose: denies: Congestion Throat: denies: Sore throat Cardiac: denies: Chest pain / pressure, Palpitations Respiratory: denies: Dyspnea, Cough GI: reports: Abdominal Pain, Constipation. denies: Nausea, Vomiting : denies: Dysuria, Frequency PD PAST MEDICAL HISTORY - Past Medical History Cardiovascular: None Respiratory: None Neuro: None Endocrine/Autoimmune: None GI: None DIRECTOR OF PERIOPERATIVE SERVICES: None : None Musculoskeletal: None - Past Surgical History Past Surgical History: No - Present Medications Home Medications: Ambulatory Orders Medication Instructions Recorded Confirmed Bcp 02/27/20 Cephalexin [Keflex] 500 mg PO BID 5 Days #10 capsule 02/27/20 Ondansetron Odt [Zofran] 4 mg TL Q6H PRN #10 tablet 04/20/20 Pyridoxine HCl (Vitamin B6) 25 mg PO BID #30 tablet 04/20/20 [Vitamin B-6] dexAMETHasone [Decadron] 4 mg PO DAILY #5 tablet 04/20/20 - Allergies Allergies/Adverse Reactions: Allergies Allergy/AdvReac Type Severity Reaction Status Date / Time No Known Drug Allergies Allergy Verified 05/14/20 10:30 - Social History Does the pt smoke?: No Smoking Status: Former smoker Does the pt drink ETOH?: Yes Does the pt have substance abuse?: No - Immunizations Immunizations are current?: Yes - POLST Patient has POLST: No PD ED PE NORMAL - Vitals Vital signs reviewed: Yes (hypertensive ) - General General: Alert and oriented X 3 - HEENT HEENT: Atraumatic, PERRL, EOMI - Neck Neck: Supple, no meningeal sign, No bony TTP - Cardiac Cardiac: RRR, No murmur - Respiratory Respiratory: No respiratory distress, Clear bilaterally - Abdomen Abdomen: Normal bowel sounds, Soft, Non distended, No organomegaly, Other (LLQ tenderness to palpation with garding) - Back Back: No CVA TTP, No spinal TTP - Derm Derm: Normal color, Warm and dry, No rash - Extremities Extremities: No deformity, No edema - Neuro Neuro: Alert and oriented X 3, 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, No motor deficit, No sensory deficit, Normal speech Eye Opening: Spontaneous Motor: Obeys Commands Verbal: Oriented GCS Score: 15 - Psych Psych: Normal mood, Normal affect Results - Vitals Vitals: Vital Signs - 24 hr 06/15/20 06/15/20 06/15/20 20:24 22:00 22:01 Temperature 36.5 C 36.9 C 36.9 C Heart Rate 81 69 69 Respiratory 22 24 24 Rate Blood Pressure 119/85 H 111/79 111/79 O2 Saturation 100 100 100 Oxygen O2 Source Room air - Labs Labs: Laboratory Tests 06/15/20 06/15/20 06/15/20 21:00 21:00 21:00 WBC 4.9 RBC 4.44 Hgb 12.5 Hct 36.8 L MCV 82.9 MCH 28.2 MCHC 34.0 RDW 12.8 Plt Count 285 MPV 9.7 Neut # (Auto) 2.3 Lymph # (Auto) 2.1 [place] # (Auto) 0.4 Eos # (Auto) 0.1 Baso # (Auto) 0.0 Absolute Nucleated RBC 0.00 Nucleated RBC % 0.0 Sodium 131 L Potassium 3.3 L Chloride 98 L Carbon Dioxide 24 Anion Gap 9.0 BUN 6 Creatinine 0.6 Estimated GFR (MDRD) 143 Glucose 88 Calcium 9.0 Total Bilirubin 0.5 AST 19 ALT 11 Alkaline Phosphatase 37 L Total Protein 7.5 Albumin 3.6 Globulin 3.9 Albumin/Globulin Ratio 0.9 L Lipase 23 Urine Color YELLOW Urine Clarity CLEAR Urine pH 6.5 Ur Specific [place] 1.010 Urine Protein NEGATIVE Urine Glucose (UA) NEGATIVE Urine Ketones NEGATIVE Urine Occult Blood TRACE-INTA Urine Nitrite NEGATIVE Urine Bilirubin NEGATIVE Urine Urobilinogen 0.2 (NORMAL) Ur Leukocyte Esterase NEGATIVE Ur Microscopic Review NOT INDICATED Urine Culture Comments NOT INDICATED Procedures - Bedside sono Bedside sono by EMP: With use of bedside ultrasound the left kidney is imaged is sonographically nontender and there is no evidence of hydronephrosis. The fetus is imaged and there is an active fetus with a heart rate of 156.The patient appears euvolemic on interrogation of the inferior vena cava. PD MEDICAL DECISION MAKING - ED course Complexity details: reviewed old records, reviewed results, re-evaluated patient, considered differential, d/w patient ED course: 29-year-old female with left lower quadrant abdominal pain appears tender to palpation on initial examination. I was initially concerned about the possibility of diverticulitis as this fit with the patient's pain location. The patient had resolution of her pain and reexamination is without evidence of any tenderness whatsoever. When I consulted with the patient about the possibility of constipation she indicated that she had been constipated the past 2 days. I found nothing else on exam or laboratory work-up of concern and she is diagnosed with constipation she is given a dose of milk of magnesia. Departure - Departure Disposition: 01 Home, Self Care Clinical Impression: Constipation Qualifiers: Constipation type: unspecified constipation type Qualified Code(s): K59.00 - Constipation, unspecified Condition: Stable Instructions: ED Constipation Follow-Up: LB TAN MD [Primary Care Provider] - Discharge Date/Time: 06/15/20 22:01
[2020-06-15 21:04] LABS: BASOPHILS % (AUTO) 0.6 %; EOSINOPHILS # (AUTO) 0.1 10^3/uL (0.0-0.7); HGB - HEMOGLOBIN 12.5 g/dL (12.0-16.0); LYMPHOCYTES # (AUTO) 2.1 10^3/uL (1.5-3.5); LYMPHOCYTES % (AUTO) 41.6 %; MEAN CORPUSCULAR HEMOGLOBIN 28.2 pg (27.0-31.0); MEAN CORPUSCULAR VOLUME 82.9 fL (81.0-99.0); MEAN PLATELET VOLUME 9.7 fL (7.9-10.8); MONOCYTES # (AUTO) 0.4 10^3/uL (0.0-1.0); MONOCYTES % (AUTO) 8.9 %; NEUTROPHILS # (AUTO) 2.3 10^3/uL (1.5-6.6); NEUTROPHILS % (AUTO) 47.5 %; PLT - PLATELET COUNT 285 10^3/uL (130-450); RED BLOOD COUNT 4.44 10^6/uL (4.20-5.40); RED CELL DISTRIBUTION WIDTH 12.8 % (12.0-15.0); WHITE BLOOD COUNT 4.9 x10^3/uL (4.8-10.8)
[2020-06-15 21:11] LABS: BILIRUBIN,URINE NEGATIVE (NEGATIVE); CLARITY,URINE CLEAR (CLEAR); GLUCOSE, URINE (UA) NEGATIVE (NEGATIVE); KETONES,URINE (UA) NEGATIVE (NEGATIVE); LEUKOCYTE ESTERASE, URINE NEGATIVE (NEGATIVE); NITRITE,URINE NEGATIVE (NEGATIVE); OCCULT BLOOD,URINE TRACE-INTA (NEGATIVE); PH,URINE 6.5 PH (5.0-7.5); PROTEIN,URINE NEGATIVE (NEGATIVE); UROBILINOGEN,URINE 0.2 (NORMAL) E.U./dL (NORMAL)
[2020-06-15 21:19] LABS: ALBUMIN 3.6 g/dL (3.2-5.5); ALBUMIN/GLOBULIN RATIO 0.9 (1.0-2.2); BILIRUBIN,TOTAL 0.5 mg/dL (0.2-1.0); CREATININE 0.6 mg/dL (0.4-1.0); TOTAL PROTEIN 7.5 g/dL (6.7-8.2)
[2020-06-15] MEDS ORDERED: MAGNESIUM HYDROXIDE 2,400 MG/30 ML UDC PO STA (21:41)
[2020-06-15 22:00] VITALS: BP 111/79
== END 2020-06-15 22:01 | disposition home or self-care (01) ==
LOC: ED 20:22
DX: O99.611 Diseases of the digestive system complicating pregnancy, first trimester (principal); K59.00 Constipation, unspecified; Z3A.12 12 weeks gestation of pregnancy; Z87.891 Personal history of nicotine dependence
CPT/HCPCS: 36415; 80053; 81003; 83690; 85025; 99283; 99284; A9270; 81001; 87086

== ENCOUNTER 2021-07-19 12:46 | Outpatient (CLI) | payer OTHER ==
[2021-07-19 13:44] VITALS: BP 109/82
--- NOTE | 2021-07-19 13:44 | SLEEP CARE CONSULTATION ---
Information from patient questionnaire entered by Selma Ortiz MA. I have reviewed and concur with the information entered by Selma Ortiz MA. This document represents the service I personally performed and the decisions made by , Kely Weems ARNP. History of Present Illness Service Date and Time: 07/19/2021 1246 Reason for Visit: New patient (ONSET 06/2020, NO PRIORS) Chief Complaint: reports: Unrefreshed sleep, Snoring, Excessive daytime sleepine ss, Frequent awakenings at night Date of Onset: 1 YEAR Usual bedtime: 800 PM Time it takes to fall asleep: 1 HOUR Snores at night: Yes Observed to quit breathing while asleep: No Sleeps alone due to snoring: Yes Number of times waking at night: 4 Reasons for waking at night: reports: Other (unknown reason) Toss, Turn, or Twitch while sleeping: Yes Recalls having dreams: Yes (remembers them vividly) Usually gets out of bed at: 0600 Feels refreshed in the morning: No Morning headache: Yes (every morning which last to 10-11 AM; takes tylenol occasionally/ [id number]) Sleepy or fatigued during the day: Yes Ever fallen asleep while driving: No Takes day naps: No Dreams during day naps: Yes Prior sleep studies: No Additional HPI information: I had the pleasure of seeing JACQUIE APPLE today regarding the possibility of her having a sleep disorder. Her current complaints are excessive daytime sleepiness, frequent night awakenings, snoring and unrefreshed sleep. She states she has a hard time sleeping. She snores very loudly. She wakes up with headaches every morning. She normally takes an hour to fall asleep initially. She wakes up at least 4 times a night and has difficulty falling back to sleep. She feels like she has been fighting someone in her sleep. She is exhausted and her muscles ache. She is taking sertraline to stay asleep but does not think it is working. She is also taking hydroxyzine right before she goes asleep and it will help her sleep but she feels she sleeps too much and wakes feeling unwell. She states there is no family history of sleep apnea but she knows her mother will have pauses in breathing when asleep and snores too. Her mother has never been tested. - Parasomnia Symptoms Ever been unable to move upon waking from sleep: Yes (sometimes, 1 x a month) Walks in sleep: No Talks in sleep: Yes Ever acted out dreams in sleep: No Ever felt weak in the knees when startled or emotional: Yes (has not fallen to the ground) Bothered by creepy, crawly, restless sensations in legs: Yes (when standing for a while and when super exhausted) Problems with memory or concentration: Yes (both, memory seems to be getting worse) Subjective Initial [place] Sleepiness Scale score: 17 (2020) Past Medical History Past Medical History: reports: Anemia, Anxiety, Depression Social History 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 Patient is and lives in . Have you smoked in the past 12 months: No Years of smokin Quit date: 2018 Alcohol use: Yes Alcohol amount and frequency: 1 X 2 WEEKS Caffeine use: Yes Caffeine amount and frequency: 1 X DAILY Family History Family history of sleep disordered breathing: No (no sure) Family Hx Sleep Apnea: Mother: Snoring, Father: Snoring, Sibling: Snoring, Grandparent: Snoring Allergies and Home Medications Known drug allergies: No Drug allergies reviewed: Yes (NKDA) Home medication list reviewed: Yes Allergy and home medication list: Sertraline Hydroxyzine Review of Systems Weight loss over past 5 years: 10 pounds Cardiovascular: denies: high blood pressure Respiratory: denies: shortness of breath Gastrointestinal: denies: heartburn Neurological: reports: headaches Ear/Nose/Throat: reports: wisdom teeth removed. denies: tonsillectomy Endocrine: denies: thyroid disease Immunologic: reports: allergies to food or environment (pollen) Physical Exam Vital signs obtained and entered by: Germain ORTIZ CMA AAMA Blood Pressure: 109/82 (right) Cuff size: wrist Heart Rate: 82 O2 Saturation: 72 (artificial nails hindered reading) Height: 5 ft 5 in Weight: 126 lb (with uniform) Body Mass Index: 20.9 BMI Classification: Healthy weight Neck circumference: 13.6 (inches) Nostrils: patent to airflow Mouth and throat: narrow oropharynx Soft palate: long Hard palate: normal Uvula: normal Uvula visualization: 100% Mallampati Class I Tongue: enlarged in size with teeth patrick on lateral edges Tonsils: small Neck: normal w/o lymphadenopathy or thyromegaly Heart: regular rate and rhythm Lungs: clear bilaterally Impression and Plan 1. Suspected Obstructive Sleep Apnea-Hypopnea Syndrome, as suggested by a hist ory of loud and irregular snoring, morning headache, frequent awakening during the night, unrefreshed sleep, cognitive impairment, and excessive daytime sleepiness. Narrow oropharynx and obesity are common predisposing factors for obstructive sleep apnea-hypopnea syndrome. I recommend proceeding to polysomnography to confirm the diagnosis and to assess severity. If the patient has significant sleep disordered breathing, a manual CPAP titration study will also be performed to find the optimal treatment pressure. I informed the patient of what the sleep studies involve and after some discussion, obtained agreement to proceed. The pathophysiology of obstructive sleep apnea-hypopnea syndrome was discussed with the patient and health risks of cardiovascular and cerebrovascular disease if not treated. AAS brochure for obstructive sleep apnea-hypopnea syndrome given and reviewed. 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 Patient agreed to plan. * Schedule polysomnography +- manual CPAP titration study and return in 1-2 weeks after the study to discuss result and initiate therapy. * Avoid long distance driving or driving when feeling sleepy. * Avoid alcohol, sedative and muscle relaxant around bedtime. * Attempt to lose weight. * Review instructions provided by trained office staff on how to prepare for the sleep study. * Return for follow-up after sleep study completed. Counseling Topics: Weight control Visit Type: In Office Time Spent with Patient (minutes): 32 Provider Statement: I spent 100% of the Face to Face Visit with the patient with greater than 50% spent counseling the patient and coordination of care.
== END 2021-07-19 12:47 | disposition home or self-care (01) ==
LOC: SC 12:46
PROVIDERS: ATTEND Nurse Practitioner Family
DX: R06.83 Snoring (principal); R51.9 Headache, unspecified; R41.89 Other symptoms and signs involving cognitive functions and awareness; G47.8 Other sleep disorders; G47.10 Hypersomnia, unspecified
CPT/HCPCS: 99203; 99212

== ENCOUNTER 2021-08-08 12:32 | Outpatient (CLI) | payer OTHER | END 2021-08-08 12:33 | disposition home or self-care (01) | LOC: SC 12:32 | PROVIDERS: ATTEND Nurse Practitioner Family | DX: R06.83 Snoring (principal); R51.9 Headache, unspecified; G47.8 Other sleep disorders; F32.A Depression, unspecified; G47.10 Hypersomnia, unspecified | CPT/HCPCS: 95806 ==

== ENCOUNTER 2021-08-16 15:52 | Outpatient (CLI) | payer OTHER ==
[2021-08-16 16:21] VITALS: BP 131/91
--- NOTE | 2021-08-16 16:21 | SLEEP CARE CONSULTATION ---
Information from patient questionnaire entered by Selma Sumner MA. I have reviewed and concur with the information entered by Selma Sumner MA. This document represents the service I personally performed and the decisions made by Dank ji Caren J, ARNP. History of Present Illness Service Date and Time: 08/16/2021 1552 Initial [place] Sleepiness Scale score: 17 (2020) Current [place] Sleepiness Scale score: 15 (2021) Additional HPI information: JACQUIE APPLE returns for follow up and results of the recently performed home sleep study. The patient was informed of the following findings: No significant sleep disordered breathing with an average AHI of 2.7 and josee oxygen saturation of 94%. I explained the pathophysiology behind obstructive sleep apnea. Patient does not have sleep apnea and was advised how weight gain could increase the risk of developing sleep apnea in the future. . Patient has mild snoring. Snoring can be reduced by weight loss. Weight loss is best achieved with diet consult. Patient instructed to contact PCP for referral. Snoring can also be treated with an oral appliance from a dentist. Advised to check insurance coverage. In addition, an ENT evaluation can be do to see if other treatment is indicated. Patient does not drink alcohol. Patient was cautioned about risks of drowsy driving until sleepiness symptoms resolve. Patient denies drowsy driving. AAS patient education on How to sleep better given and reviewed. Sleep Study - Results Type of Sleep Study: Home sleep study Prior sleep studies: No Polysomnography/Home Sleep Study results: Physician Impression: The quality of the study is good. The length of the study is adequate (> 240 minutes). Please also see the tabulated and graphic data. 1. No significant sleep disordered breathing, with an AHI of 2.7/hr and josee SaO2 of 94%. During the study, the patient had 15 apneas (15 obstructive, 0 central, 0 mixed) and 0 hypopneas. The longest episode lasted 27.5 seconds. The few respiratory events occurred independently of body position (supine AHI was 2.4 and non-supine, 3.61). Allergies and Home Medications Known drug allergies: No Drug allergies reviewed: Yes Home medication list reviewed: Yes (no changes) Review of Systems Review of systems same as previous: Yes (no changes) Physical Exam Vital signs obtained and entered by: L. Taisha, QUALITY CONTROL SYSTEMS MANAGER AAMA Blood Pressure: 131/91 (right, pulse 67) Cuff size: wrist Heart Rate: 79 O2 Saturation: 100 (paper mask) Height: 5 ft 5 in Weight: 120 lb (w/o clothes) Body Mass Index: 20.0 BMI Classification: Healthy weight Impression and Plan Snoring but no significant sleep disordered breathing. Patient advised that often weight loss will reduce snoring as well as apnea risk. An oral appliance can also be used for snoring. This would require a dental consultation. Patient cautioned not to use other online appliances as can cause bite issues. A list of accredited dentists in area and one local dentist who makes oral appliances given. Patient is advised to check if insurance will cover. An ENT consult can also be helpful to determine if any other treatment is an option. * Attempt to lose weight * The patient is cautioned about driving until sleepiness is completely resolved. * Return as needed for follow up. Counseling Topics: Weight control Visit Type: In Office Time Spent with Patient (minutes): 10 Provider Statement: I spent 100% of the Face to Face Visit with the patient with greater than 50% spent counseling the patient and coordination of care.
== END 2021-08-16 15:53 | disposition home or self-care (01) ==
LOC: SC 15:52
PROVIDERS: ATTEND Nurse Practitioner Family
DX: R06.83 Snoring (principal)
CPT/HCPCS: 99212